=== PATIENT | male | born 1970 | race African-American/Black ===

== ENCOUNTER 2016-12-01 05:35 | Emergency (ER) | payer MEDICAID ==
[~2016-12-01] VITALS: Ht 180.3 cm; Wt 83.9 kg
[2016-12-01 05:40] VITALS: BP 136/86
[2016-12-01] MEDS ORDERED: NKM (05:42)
--- NOTE | 2016-12-01 05:52 | Emergency Room Report ---
History of Present Illness General Chief Complaint: Chest Pain Source: Patient Present Illness HPI 46 YO M former smoker - quit 2 months ago - with intermittent chest tightness for 5 days. No assoc fever/chills, cough, SOB. No history of asthma/COPD/CAD or other PMHx. Didnt take any meds for pain or treatment. Allergies: Coded Allergies: No Known Allergies (Unverified , 12/01/16) Patient History Past Medical History: none Past Surgical History: none Pertinent Family History: none Social History: Reports: smoking Immunizations: UTD Reviewed Nursing Documentation: PMH: Agreed, PSxH: Agreed Nursing Documentation-PMH Past Medical History: No Stated History Review of Systems All Other Systems: negative except mentioned in HPI Physical Exam Vital Signs Date Time Temp Pulse Resp B/P Pulse Ox O2 Delivery O2 Flow Rate FiO2 12/01/16 05:36 97.3 78 16 136/86 98 Room Air Sp02 EP Interpretation: reviewed, normal General Appearance: normal inspection, well appearing, no apparent distress, alert, GCS 15, non-toxic Head: normocephalic, atraumatic Eyes: bilateral eye EOMI, bilateral eye PERRL ENT: normal ENT inspection, hearing grossly normal, normal voice Neck: normal inspection, full range of motion, supple, no bony tend Respiratory: normal inspection, lungs clear, normal breath sounds, no respiratory distress, no retraction, no wheezing Cardiovascular #1: normal peripheral pulses, regular rate, rhythm, no edema Gastrointestinal: normal inspection, normal bowel sounds, non tender, soft, no guarding, no hernia Genitourinary: no CVA tenderness Musculoskeletal: normal inspection, back normal, normal range of motion, Marie' s Sign negative Neurologic: normal inspection, alert, oriented x3, responsive, post closing specialist III-XII nml as tested, motor strength/tone normal, speech normal Psychiatric: normal inspection, judgement/insight normal, mood/affect normal Skin: normal inspection, normal color, no rash Lymphatic: normal inspection Medical Decision Making Diagnostic Impression: Primary Impression: Chest pain Qualified Codes: R07.9 - Chest pain, unspecified ER Course Chest pain for 5 days. VSS. Afebrile ECG: incomplete RBBB CXR: No PTX, cardiomegaly or PNA Labs: Mild ANGELO (patient states he has been told he's dehydrated in the past). Troponin 0. D-dimer negative. A: - Unlikely ACS given duration of symptoms, no CAD risk factors. ECG normal. Troponin 0. - Unlikely PE given negative d-dimer - Possibly GERD. Will try trial of PPI - Patient given copy of labs, will followup with PMD DC home EKG Diagnostic Results Rate: normal Rhythm: NSR, other - incomplete RBBB ST Segments: no acute changes Rhythm Strip Diag. Results EP Interpretation: yes Rate: 75 Rhythm: NSR, no PVC's, no ectopy Chest X-Ray Diagnostic Results EP Interpretation: Yes Findings: no consolidation, no effusion, no pneumothorax, no acute cardiopulmonary disease Number of Views: 1 Last Vital Signs Date Time Temp Pulse Resp B/P Pulse Ox O2 Delivery O2 Flow Rate FiO2 12/01/16 05:36 97.3 78 16 136/86 98 Room Air Status: improved Disposition: HOME, SELF-CARE RAFITA BAUTISTA M.D. Dec 01, 2016 05:52
[2016-12-01] MEDS ORDERED: Albuterol ud Inhalation HHN ONE (06:00)
[2016-12-01 06:32] LABS: TROPONIN I < 0.30 ng/mL (<=0.30)
[2016-12-01 06:42] LABS: ALANINE AMINOTRANSFERASE 29 U/L (3-41); ALBUMIN/GLOBULIN RATIO 1.5 (1.0-2.7); ANION GAP 17 (5-15); ASPARTATE AMINO TRANSFERASE 24 U/L (5-40); CARBON DIOXIDE 27 mEQ/L (20-30); CHLORIDE 97 mEQ/L (98-107); CREATININE 1.4 mg/dL (0.7-1.2); GLOMERULAR FILTRATION RATE > 60 mL/min (>60); HEMOLYSIS 23; POTASSIUM 3.7 mEQ/L (3.4-4.9); SODIUM 141 mEQ/L (135-145); TOTAL PROTEIN 7.5 g/dL (6.6-8.7)
[2016-12-01 06:53] LABS: CKMB 1.6 ng/mL (< 6.7)
[2016-12-01 06:55] LABS: BASOPHILS % (AUTO) 1.4 % (0.0-2.0); EOSINOPHILS % (AUTO) 4.6 % (0.0-3.0); LYMPHOCYTES % (AUTO) 33.8 % (20.0-45.0); MEAN CORPUSCULAR HEMOGLOBIN 28.8 PG (27.0-31.0); MEAN CORPUSCULAR HGB CONC 34.3 G/DL (32.0-36.0); MEAN CORPUSCULAR VOLUME 84 FL (80-99); MEAN PLATELET VOLUME 7.9 FL (6.5-10.1); MONOCYTES % (AUTO) 10.2 % (1.0-10.0); PLATELET COUNT 230 K/UL (150-450); RED BLOOD COUNT 4.69 M/UL (4.70-6.10); RED CELL DISTRIBUTION WIDTH 11.9 % (11.6-14.8); WHITE BLOOD COUNT 6.1 K/UL (4.8-10.8)
[2016-12-01] MEDS ORDERED: PEPCID20 MG ORAL (07:17)
[2016-12-01 07:20] VITALS: BP 127/80
[2016-12-01 07:28] VITALS: BP 127/80
--- NOTE | 2016-12-01 12:07 | Diagnostic Imaging Report ---
Indication: PAIN Technique: One view of the chest Comparison: none Findings: Lungs and pleural spaces are clear. Heart size is normal. Impression: No acute process
--- NOTE | 2016-12-02 02:57 | Cardiology Report ---
APPROVED REPORT EKG Measurement Heart [id number] CT [id number] [id number] Normal sinus rhythm Incomplete right bundle branch block Borderline ECG
== END 2016-12-01 07:25 | disposition home or self-care (01) ==
LOC: EMR 06:00
DX: R07.89 Other chest pain (principal); F17.200 Nicotine dependence, unspecified, uncomplicated
CPT/HCPCS: 36415; 71010; 80053; 82550; 82553; 84484; 85025; 85379; 93005; 94640; 94664; 99283